=== PATIENT | male | born 1940 | race Caucasian/White ===

== ENCOUNTER 2018-10-23 08:40 | Emergency (ER) | payer MEDICARE ==
[2018-10-23] MEDS ORDERED: Ipratropium Bromide 2.5 ml Neb ONE (08:48)
[2018-10-23] MEDS ORDERED: Albuterol Sulfate 2.5 mg/0.5 ml Neb ONE (08:48)
--- NOTE | 2018-10-23 09:01 | RAD ---
Portable chest: HISTORY: Shortness of breath COMPARISON: none FINDINGS: Lung cade are clear. Heart and mediastinum appear unremarkable. Vascularity is normal. A rtifact obscures the right apex. Visualized osseous structures unremarkable. IMPRESSION: No acute finding
[2018-10-23 09:11] LABS: #Basophils 0.2 thou/uL (0.0-0.2); #Eosinphils 0.5 thou/uL (0.0-0.7); #Lymphocytes 1.7 thou/uL (1.20-3.40); #Monocytes 1.3 thou/uL (0.11-0.59); %Basophils 1.1 % (0.0-1.0); %Eosinophils 3.6 % (0.0-10.0); %Lymphocytes 12.5 % (21.0-51.0); %Monocytes 9.4 % (0.0-10.0); %Neutrophils 73.4 % (42.0-75.0); Hemoglobin 15.9 g/dL (14.0-18.0); Mean Corpuscular HGB CONC 31.1 g/dL (32.0-36.0); Mean Corpuscular Hemoglobin 27.2 pg (27.0-31.0); Mean Corpuscular Volume 87.6 fL (78.0-98.0); Mean Platelet Volume 5.7 fL (7.4-10.4); Platelet Count 424 thou/uL (130-400); RBC Distribution Width 13.9 % (11.5-14.5); Red Blood Cell (RBC) Count 5.84 mill/uL (4.70-6.10); White Blood Cell (WBC) Count 13.6 thou/uL (4.8-10.8)
[2018-10-23 09:18] LABS: ALT (SGPT) 6 U/L (8-55); AST (SGOT) 17 U/L (5-34); Albumin 3.7 g/dL (3.4-4.8); Alkaline Phosphatase 91 U/L (40-150); Anion Gap 17 mmol/L (10-20); BUN (Urea Nitrogen) 5 mg/dL (8.4-25.7); Bilirubin, Total 0.9 mg/dL (0.2-1.2); CK (CPK) 22 U/L (30-200); Calc. Creatinine Clearance 0 mL/min (70-130); Carbon Dioxide 27 mmol/L (23-31); Chloride 102 mmol/L (98-107); Estimated GFR-MDRD Greater than 90; Globulin 3.4 g/dL (2.4-3.5); Glucose 114 mg/dL (83-110); Lipase 25 U/L (8-78); Potassium 3.4 mmol/L (3.5-5.1); Protein, Total 7.1 g/dL (5.8-8.1); Sodium 143 mmol/L (136-145)
[2018-10-23] MEDS ORDERED: methylPREDNISolone Sod Succ/PF 125 MG/2 ML VIAL ONE (09:26)
== END 2018-10-23 10:26 | disposition short-term general hospital (02) ==
LOC: NAV ERS 08:40
DX: J96.00 Acute respiratory failure, unspecified whether with hypoxia or hypercapnia (principal); J44.1 Chronic obstructive pulmonary disease with (acute) exacerbation; R10.9 Unspecified abdominal pain; F17.210 Nicotine dependence, cigarettes, uncomplicated; Z79.51 Long term (current) use of inhaled steroids
CPT/HCPCS: 71045; 80053; 82550; 83690; 84484; 85025; 93005; 94644; 96374; J2930; J7611

== ENCOUNTER 2019-03-15 15:20 | Emergency (ER) | payer MEDICARE ==
[2019-03-15] MEDS ORDERED: Ipratropium Bromide 2.5 ml Neb ONE ×2 (15:37→16:29)
[2019-03-15] MEDS ORDERED: Levalbuterol HCl 0.63 MG/3 ML NEB ONE (15:37)
[2019-03-15] MEDS ORDERED: Levalbuterol HCl 1.25 MG/0.5 ML NEB ONE (16:29)
[2019-03-15] MEDS ORDERED: methylPREDNISolone Sod Succ/PF 125 MG/2 ML VIAL ONE (16:30)
[2019-03-15 17:13] LABS: #Basophils 0.1 thou/uL (0.0-0.2); #Eosinphils 0.4 thou/uL (0.0-0.7); #Lymphocytes 1.5 thou/uL (1.20-3.40); #Monocytes 0.8 thou/uL (0.11-0.59); #Neutrophils 4.8 thou/uL (1.40-6.50); %Basophils 1.4 % (0.0-1.0); %Eosinophils 5.6 % (0.0-10.0); %Lymphocytes 19.4 % (21.0-51.0); %Monocytes 10.9 % (0.0-10.0); %Neutrophils 62.8 % (42.0-75.0); Hemoglobin 15.2 g/dL (14.0-18.0); Mean Corpuscular HGB CONC 31.4 g/dL (32.0-36.0); Mean Corpuscular Hemoglobin 26.3 pg (27.0-31.0); Mean Corpuscular Volume 83.8 fL (78.0-98.0); Mean Platelet Volume 5.7 fL (7.4-10.4); Platelet Count 372 thou/uL (130-400); RBC Distribution Width 13.6 % (11.5-14.5); Red Blood Cell (RBC) Count 5.77 mill/uL (4.70-6.10); White Blood Cell (WBC) Count 7.6 thou/uL (4.8-10.8)
[2019-03-15 17:29] LABS: ALT (SGPT) 8 U/L (8-55); AST (SGOT) 12 U/L (5-34); Albumin 3.5 g/dL (3.4-4.8); Alkaline Phosphatase 95 U/L (40-110); Anion Gap 15 mmol/L (10-20); BUN (Urea Nitrogen) 10 mg/dL (8.4-25.7); Bilirubin, Total 0.6 mg/dL (0.2-1.2); Calc. Creatinine Clearance 0 mL/min (70-130); Carbon Dioxide 28 mmol/L (23-31); Chloride 101 mmol/L (98-107); Estimated GFR-MDRD 90; Glucose 107 mg/dL (83-110); Potassium 4.2 mmol/L (3.5-5.1); Protein, Total 6.5 g/dL (5.8-8.1); Sodium 140 mmol/L (136-145)
--- NOTE | 2019-03-15 18:42 | RAD ---
CHEST ONE VIEW: Indications: 78-year-old male with history of smoking with COPD. Comparison: 10-23-18 FINDINGS: Lungs are hyperinflated. No definite consolidation or pleural effusion is evident. No pneumothorax is evident. No acute osseous abnormality is evident. IMPRESSION: COPD changes. POS: [facility]
== END 2019-03-15 18:15 | disposition home or self-care (01) ==
LOC: NAV ERS 15:20
DX: J43.9 Emphysema, unspecified (principal); F17.210 Nicotine dependence, cigarettes, uncomplicated; Z79.51 Long term (current) use of inhaled steroids
CPT/HCPCS: 71045; 80053; 85025; 94640; 96374; J2930; J7612; J7614